=== PATIENT | male | born 1975 | race American Indian/Alaskan Native ===

== ENCOUNTER 2019-06-21 07:58 | Emergency (ER) | payer SELFPAY ==
[2019-06-21 08:38] LABS: Basophils % (Auto) 0.6 % (0.0-1.8); Eosinophils # (Auto) 0.1 K/mm3 (0.0-0.4); Eosinophils % (Auto) 1.2 % (0.0-4.3); Hematocrit 46.9 % (35.5-45.6); Hemoglobin 15.9 gm/dl (11.8-15.2); Lymphocytes % (Auto) 33.8 % (13.4-35.0); Mean Corpuscular HGB Conc 34 % (32-34); Mean Corpuscular Volume 91 fl (84-94); Monocytes # (Auto) 0.6 K/mm3 (0.0-0.8); Monocytes % (Auto) 10.4 % (0.0-7.3); Platelet Count 200 K/mm3 (140-440); Red Blood Count 5.15 M/mm3 (3.65-5.03); Red Cell Distribution Width 13.8 % (13.2-15.2)
[2019-06-21] MEDS ORDERED: SODIUM CHLORIDE 0.9% 1000 ML 1,000 ML ONE (08:42)
[2019-06-21] MEDS ORDERED: ONDANSETRON 4 MG/2 ML INJ ONE (08:42)
[2019-06-21] MEDS ORDERED: ONDANSETRON 4 MG/2 ML INJ IV ONE (08:45)
[2019-06-21] MEDS ORDERED: SODIUM CHLORIDE 0.9% 1000 ML 1,000 ML IV ONE (08:45)
[2019-06-21 09:35] LABS: Alanine Aminotransferase 30 units/L (7-56); Albumin 4.2 g/dL (3.9-5); BUN/Creatinine Ratio 12; Blood Urea Nitrogen 12 mg/dL (9-20); Calcium 9.4 mg/dL (8.4-10.2); Hemolysis Index 48
[2019-06-21] MEDS ORDERED: LIDOCAINE VISCOUS 2% 15 ML ORAL LIQD PO STA (10:52)
[2019-06-21] MEDS ORDERED: diphenhydrAMINE 25 MG/10 ML ORAL LIQUID PO STA (10:53)
[2019-06-21] MEDS ORDERED: ALUM-MAG HYDROXIDE-SIMETHICONE 200-200-20MG/5ML ORAL LIQD 30 ML PO STA (10:54)
--- NOTE | 2019-06-21 11:26 | Emergency Department Report ---
ED General Adult HPI - General Chief complaint: Nausea/Vomiting/Diarrhea Stated complaint: VOMITING X 4DAY Time Seen by Provider: 06/21/19 10:25 Source: patient Mode of arrival: Ambulatory Limitations: No Limitations - History of Present Illness Initial comments: 43yo BM states that he has been experiencing nausea, vomiting and diarrhea with intermittent abdominal pain. Pt states that he has experienced symptoms for 4 days. In his recent diet, he states that he has ate pizza, pasta with cheese, ice cream and cereal with milk. His symptoms worse in the morning. He states that he recently used Mag. Citrate but had little resolution. -: days(s) (4) Location: abdomen Radiation: non-radiation Severity scale (0 -10): 6 Quality: aching Improves with: none Worsens with: none, eating Associated Symptoms: nausea/vomiting Treatments Prior to Arrival: other (Mag. Citrate) - Related Data Previous Rx's Medication Instructions Recorded Last Taken Type Omeprazole 20 mg PO DAILY 30 Days #30 06/21/19 Unknown Rx capsule. Allergies Allergy/AdvReac Type Severity Reaction Status Date / Time No Known Allergies Allergy Unverified 06/21/19 08:08 ED Review of Systems ROS: Stated complaint: VOMITING X 4DAY Other details as noted in HPI ED Past Medical Hx - Past Medical History Previous Medical History?: Yes Hx Asthma: Yes - Surgical History Past Surgical History?: No - Social History Smoking Status: Never Smoker Substance Use Type: Marijuana - Medications Home Medications: Home Medications Medication Instructions Recorded Confirmed Last Taken Type Omeprazole 20 mg PO DAILY 30 Days #30 06/21/19 Unknown Rx capsule. ED Physical Exam - General Limitations: No Limitations ED Course Vital Signs 06/21/19 08:04 Temperature 98.3 F Pulse Rate 74 Respiratory 16 Rate Blood Pressure 176/112 O2 Sat by Pulse 100 Oximetry ED Medical Decision Making - Lab Data Result diagrams: 06/21/19 08:24 06/21/19 08:24 - Medical Decision Making 43yo BM states that he has been experiencing nausea, vomiting and diarrhea with intermittent abdominal pain. Pt states that he has experienced symptoms for 4 days. In his recent diet, he states that he has ate pizza, pasta with cheese, ice cream and cereal with milk. His symptoms worse in the morning. He states that he recently used Mag. Citrate but had little resolution. A GI cocktail was given to the patient and he states that he has some resolve of his symptoms. Pt was instructed to decrease dairy consumption and a handout on gastritis and lactose intolerance was given to the patient. Omeprazole was prescribed and the patient was instructed to use Mylanta/Pepto-Bismol as needed. He was instructed to f/u with his PCP; see ER as needed. Critical care attestation.: If time is entered above; I have spent that time in minutes in the direct care of this critically ill patient, excluding procedure time. ED Disposition Clinical Impression: Gastritis, Lactose intolerance Disposition: DC- TO HOME OR SELFCARE Is pt being admited?: No Does the pt Need Aspirin: No Condition: Stable Instructions: Gastritis (ED), Lactose-Controlled Diet (ED) Additional Instructions: Pt was instructed to decrease dairy consumption and a handout on gastritis and lactose intolerance was given to the patient. Omeprazole was prescribed and the patient was instructed to use Mylanta/Pepto-Bismol as needed. He was instructed to f/u with his PCP; see ER as needed. Prescriptions: Omeprazole 20 mg PO DAILY 30 Days #30 capsule. Referrals: PRIMARY CARE, [Primary Care Provider] - 3-5 Days [facility] [place] [Outside] - 3-5 Days Forms: Work/School Release Form(ED) Time of Disposition: 12:36
[2019-06-21 12:50] VITALS: BP 156/100
== END 2019-06-21 12:49 | disposition home or self-care (01) ==
LOC: ED 07:58
DX: K29.70 Gastritis, unspecified, without bleeding (principal); E73.9 Lactose intolerance, unspecified; J45.909 Unspecified asthma, uncomplicated; F12.10 Cannabis abuse, uncomplicated
CPT/HCPCS: 36415; 80053; 83690; 85025; 96361; 96374; 99283; J2405; J7030; Q0163